=== PATIENT | female | born 1965 | race Caucasian/White ===

== ENCOUNTER 2018-09-03 22:49 | Emergency (ER) | payer OTHER ==
[~2018-09-03] VITALS: Ht 165.1 cm; Wt 55.3 kg
[2018-09-03 22:56] VITALS: BP 137/77
--- NOTE | 2018-09-03 23:40 | NUR ---
PT BIB FAMILY FOR FALL 2 HOURS AGO. PT REPORTS TIGHTNESS/PRESSURE PAIN ON L HIP AND L BACK AT 8/10. PT REPORTS TRIPING OVER CANE AND FALLING ON L HIP AND L BACK. NO EDMEA, ERYTHEMA, OR DEFORMITIES VISIBLE. PT DENIES HITTING HEAD OR LOSING CONSCIOUSNESS. VSS. ER MD TO SEE PT. MEDHX: INCLUSION BODY MYOSITIS, ARTHRITIS, ASTHMA, HTN, AND FIBROMYALGA RX: VERAPAMIL, DICLOFENAC, LORAZEPAM, TRAMADOL, FLOVENT, LYRICA
--- NOTE | 2018-09-03 23:55 | NUR ---
Dr. Obregon evaluating patient at bedside.
--- NOTE | 2018-09-04 | NUR ---
PT TAKEN TO CT WITH TECH
[2018-09-04] MEDS ORDERED: fentaNYL 0.05 MG/ML VIAL IM ONE (00:10)
[2018-09-04 01:10] VITALS: BP 112/63
--- NOTE | 2018-09-04 01:10 | NUR ---
Patient discharged with v/s stable. Written and verbal after care instructions given and explained. Patient alert, oriented and verbalized understanding of instructions. Ambulatory with steady gait WITH CANE. All questions addressed prior to discharge. ID band removed. Patient advised to follow up with PMD. Rx of NORCO, MOTRIN, AND ROBAXIN given. Patient educated on indication of medication including possible reaction and side effects. Opportunity to ask questions provided and answered.
== END 2018-09-04 01:10 | disposition home or self-care (01) ==
LOC: MED 22:49
DX: S70.01XA Contusion of right hip, initial encounter (principal); S20.20XA Contusion of thorax, unspecified, initial encounter; J45.909 Unspecified asthma, uncomplicated; I10 Essential (primary) hypertension; Z88.1 Allergy status to other antibiotic agents; W01.0XXA Fall on same level from slipping, tripping and stumbling without subsequent striking against object, initial encounter; Y93.89 Activity, other specified; Y92.39 Other specified sports and athletic area as the place of occurrence of the external cause
CPT/HCPCS: 72131; 81002; 81025; 96372; 99284; J3010

== ENCOUNTER 2019-07-21 16:18 | Emergency (ER) | payer OTHER ==
[~2019-07-21] VITALS: Ht 165.1 cm; Wt 54.4 kg
[2019-07-21 16:39] VITALS: BP 155/68
--- NOTE | 2019-07-21 16:44 | NUR ---
PT TO CHAIR Hinojosa WITH LAUREN Addendum: 07/21/19 at 1644 by [email or web address] CHAIR Jelena
--- NOTE | 2019-07-21 16:57 | NUR ---
C/O L FOOT PAIN X POST FALL THURSDAY. BRUISING NOTED TO LEFT LATERAL FOOT AND DORSOL FOOT. AMBULATES WITH CANE AT BASELINE. PT HAS BEEN AMBULATORY SINCE THE FALL, BUT REPORTS WORSENED PAIN WITH WALKING ON HARD SURFACES. PT HAS BRUISED EYE FROM SEPARATE FALL, NO C/O OF H/A OR N/V PMH- FIBROMYALGIA, MYOSITIS
--- NOTE | 2019-07-21 17:22 | NUR ---
TO XRAY VIA W/C
--- NOTE | 2019-07-21 18:09 | NUR ---
LYSSA ALBARRAN SPEAKING WITH PT AT THIS TIME
[2019-07-21] MEDS ORDERED: traMADol 50 MG TAB PO ONE (18:10)
--- NOTE | 2019-07-21 18:52 | NUR ---
PLACED SHORT LEG SPLINT ON PT'S LEFT FOOT THEN COVERED IT WITH 3" MIGUEL WRAP, PMSC'S CHECKED BEFORE AND AFTER PLACEMENT, WITHOUT INCIDENT.
--- NOTE | 2019-07-21 19:06 | NUR ---
Patient discharged with v/s stable. Written and verbal after care instructions given and explained. Patient alert, oriented and verbalized understanding of instructions. Wheel Chair Assisted TO LOBBY. All questions addressed prior to discharge. ID band removed. Patient advised to follow up with PMD. Rx of IBUPROFEN given. Patient educated on indication of medication including possible reaction and side effects. Opportunity to ask questions provided and answered.
[2019-07-21 19:08] VITALS: BP 141/76
== END 2019-07-21 19:06 | disposition home or self-care (01) ==
LOC: MED 16:18
DX: S92.352A Displaced fracture of fifth metatarsal bone, left foot, initial encounter for closed fracture (principal); J45.909 Unspecified asthma, uncomplicated; I10 Essential (primary) hypertension; Z88.8 Allergy status to other drugs, medicaments and biological substances; W19.XXXA Unspecified fall, initial encounter; Y93.89 Activity, other specified; Y92.89 Other specified places as the place of occurrence of the external cause; Y99.8 Other external cause status
CPT/HCPCS: 29515; 73630; 99283; Q0092